=== PATIENT | female | born 1950 ===

== ENCOUNTER 2018-06-16 08:15 | Inpatient (IN) | payer OTHER ==
[~2018-06-16] VITALS: Ht 157.5 cm; Wt 76.7 kg
[2018-06-16] MEDS ORDERED: VASOTEC20 M1 PO (10:42)
[2018-06-21] MEDS ORDERED: CODE1TAB37 PO (10:34)
== END 2018-06-21 11:18 | disposition home or self-care (01) | DRG 743 ==
LOC: SURH 08:15 → O/R 06-18 09:31 → SURG 06-18 09:31 → SURH 06-18 19:45 → SURG 06-21 11:18
PROVIDERS: ADMIT Obstetrics & Gynecology
PROC: 0UT70ZZ Resection of Bilateral Fallopian Tubes, Open Approach (ICD-10-PCS; 2018-06-18)
PROC: 0UT20ZZ Resection of Bilateral Ovaries, Open Approach (ICD-10-PCS; 2018-06-18)
PROC: 0WJG0ZZ Inspection of Peritoneal Cavity, Open Approach (ICD-10-PCS; 2018-06-18)
PROC: 0UB00ZZ Excision of Right Ovary, Open Approach (ICD-10-PCS; principal; 2018-06-18 19:45)
DX: N83.291 Other ovarian cyst, right side (principal); N73.6 Female pelvic peritoneal adhesions (postinfective); I10 Essential (primary) hypertension